=== PATIENT | female | born 1985 | race Two or more races ===

== ENCOUNTER 2017-10-05 16:30 | Emergency (ER) | payer OTHER ==
--- NOTE | 2017-10-05 17:01 | EDPHY ---
H & P Time Seen by Provider: 10/05/17 16:36 HPI/ROS: 32 yo F presents c/o left ankle swelling for the last 5 days. She states she was running at work and felt a pop in her ankle and it has been swollen since then. No fever or chills, no redness. She states she has a history of lupus, her symptoms with her lupus are fatigue and occasional skin rash. Review of systems As per HPI General no fever no chills no weakness HEENT no eye pain no eye discharge. No eye redness, no sore throat Respiratory no cough, no shortness of breath Cardiac no chest pain, no peripheral edema GI no abdominal pain, no diarrhea, no constipation, no nausea, no vomiting no flank pain, no hematuria, no dysuria Musculoskeletal no myalgias, pos joint pain Heme no easy bruising, no easy bleeding Endo no polyuria, no polydipsia Skin no rashes, no pruritus Neuro no syncope, no dizziness, no headaches Psych is no suicidal ideation, no homicidal ideation Past Medical/Surgical History: lupus Social History: no alcohol or drug use Smoking Status: Never smoked Physical Exam: 32-year-old female Alert and oriented in no acute distress nontoxic appearance, afebrile Atraumatic normocephalic Neck no JVD Lungs clear to auscultation, no respiratory distress Heart regular rate and rhythm left lower extremity left ankle with edema , ttp at lateral aspect, no ecchymoses, no erythema no lymphangitis streaks good distal pulses Constitutional: Initial Vital Signs Heart Rate 80 10/05/17 16:36 Respiratory Rate 16 10/05/17 16:36 Blood Pressure 120/73 10/05/17 16:36 O2 Sat (%) 97 10/05/17 16:36 O2 Delivery Mode Room Air Allergies/Adverse Reactions: No Known Allergies Allergy (Verified 10/05/17 16:44) Home Medications: Medication Instructions Recorded Lupus Medication 10/05/17 predniSONE 40 mg PO DAILY 5 Days #10 tab 10/05/17 Medical Decision Making - Diagnostics Imaging Results: Imaging Impressions Ankle X-Ray 10/05/17 16:48 Impression: 1. Moderate soft tissue swelling about the medial and lateral aspect of the left ankle. 2. No underlying fracture seen. ED Course/Re-evaluation: Pt seen and evaluted for left ankle swelling. xray neg fracture, pos sts Imp left ankle sprain plan edmar wrap prednisone 40 mg once daily for 5 days- to cover possible lupus flare Differential Diagnosis: Differential diagnosis considered but not limited to: Left ankle sprain, left ankle fracture, lupus flare causing ankle swelling Departure - Departure Disposition: Home, Routine, Self-Care Clinical Impression: Left ankle sprain Condition: Good Instructions: Ankle Sprain (ED) Additional Instructions: Follow up with occupational health that your employer is contracted with. Referrals: NONE *PRIMARY CARE P,. [Primary Care Provider] - As per Instructions Stand Alone Forms: Work Comp Follow Up, Work Excuse Prescriptions: predniSONE 40 mg PO DAILY 5 Days #10 tab Print Language: Ukrainian
[2017-10-05 19:25] VITALS: BP 115/77
== END 2017-10-05 18:22 | disposition home or self-care (01) ==
LOC: CED 16:30
DX: S93.402A Sprain of unspecified ligament of left ankle, initial encounter (principal); X58.XXXA Exposure to other specified factors, initial encounter; Y92.89 Other specified places as the place of occurrence of the external cause; Y99.0 Civilian activity done for income or pay; Y93.02 Activity, running
CPT/HCPCS: 73600-PO